=== PATIENT | male | born 1975 | race Caucasian/White ===

== ENCOUNTER 2022-02-05 23:30 | Emergency (ER) | payer OTHER ==
[2022-02-06] MEDS ORDERED: IBUPROFEN600 MG PO (04:19)
== END 2022-02-06 04:25 ==
LOC: ER1 23:30
DX: S00.12XA Contusion of left eyelid and periocular area, initial encounter (principal); Y08.09XA Assault by strike by other specified type of sport equipment, initial encounter; Y92.143 Cell of prison as the place of occurrence of the external cause
CPT/HCPCS: 70450; 70486; 72100; 72125; 99284